=== PATIENT | male | born 1990 | race Caucasian/White ===

== ENCOUNTER 2016-08-11 21:38 | Emergency (ER) | payer SELFPAY ==
[2016-08-11 22:50] LABS: BASOPHIL % 0.9 % (0-2); PLATELET COUNT 270 x10^3mcL (130-400); RED CELL DISTRIBUTION WIDTH 13.4 % (11.5-14.5)
[2016-08-11 22:59] LABS: CARBON DIOXIDE 26.3 mmol/L (21-32); CHLORIDE SERUM 103 mmol/L (98-107); CREATININE SERUM 1.1 mg/dL (0.7-1.3); GFR1 > 60 mL/min; GLUCOSE SERUM 116 mg/dL (74-106); POTASSIUM SERUM 3.7 mmol/L (3.5-5.1); SODIUM SERUM 140 mmol/L (136-145)
[2016-08-11 23:03] LABS: ALBUMIN 3.8 g/dL (3.4-5.0); ALKALINE PHOSPHATASE 68 U/L (46-116); ALT/SGPT 32 U/L (16-63); AST/SGOT 16 U/L (15-37); BILIRUBIN TOTAL 0.2 mg/dL (0.20-1.00); LIPASE 142 IU/L (73-393); TOTAL PROTEIN, SERUM 7.1 g/dL (6.4-8.2)
[2016-08-11 23:41] VITALS: BP 140/91
== END 2016-08-11 23:41 | disposition home or self-care (01) ==
LOC: ED 21:38
PROVIDERS: Emergency Medicine
DX: R07.9 Chest pain, unspecified (principal)
CPT/HCPCS: J1885; Q0092

== ENCOUNTER 2016-12-04 17:32 | Emergency (ER) | payer MEDICAID ==
[2016-12-04 20:03] VITALS: BP 131/76
== END 2016-12-04 20:03 | disposition home or self-care (01) ==
LOC: ED 17:32
DX: L25.9 Unspecified contact dermatitis, unspecified cause (principal); T78.40XA Allergy, unspecified, initial encounter; X58.XXXA Exposure to other specified factors, initial encounter
CPT/HCPCS: J1100

== ENCOUNTER 2017-03-14 18:13 | Emergency (ER) | payer SELFPAY ==
[2017-03-14 22:07] VITALS: BP 122/74
== END 2017-03-14 22:07 | disposition home or self-care (01) ==
LOC: ED 18:13
DX: I88.9 Nonspecific lymphadenitis, unspecified (principal)

== ENCOUNTER 2017-11-02 23:25 | Emergency (ER) | payer SELFPAY ==
[~2017-11-02] VITALS: Ht 154.9 cm; Wt 95.7 kg
[2017-11-02 23:34] VITALS: BP 131/89; Ht 154.9 cm; Wt 95.7 kg
== END 2017-11-02 23:52 | disposition left against medical advice (07) ==
LOC: ED 23:25
DX: Z53.21 Procedure and treatment not carried out due to patient leaving prior to being seen by health care provider (principal)

== ENCOUNTER 2018-03-06 03:08 | Emergency (ER) | payer SELFPAY ==
[~2018-03-06] VITALS: Ht 177.8 cm; Wt 97.1 kg
[2018-03-06 03:13] VITALS: Ht 177.8 cm; Wt 97.1 kg
[2018-03-06 04:41] VITALS: BP 135/77
== END 2018-03-06 04:41 | disposition home or self-care (01) ==
LOC: ED 03:08
DX: S29.011A Strain of muscle and tendon of front wall of thorax, initial encounter (principal); M94.0 Chondrocostal junction syndrome [Tietze]; X58.XXXA Exposure to other specified factors, initial encounter; Y93.89 Activity, other specified; Y92.89 Other specified places as the place of occurrence of the external cause; Y99.8 Other external cause status
CPT/HCPCS: J1885

== ENCOUNTER 2020-01-06 21:30 | Emergency (ER) | payer SELFPAY ==
[~2020-01-06] VITALS: Ht 170.2 cm; Wt 95.3 kg
[2020-01-06 21:51] VITALS: Ht 170.2 cm; Wt 95.3 kg
[2020-01-07 00:25] VITALS: BP 125/80
== END 2020-01-07 00:25 | disposition home or self-care (01) ==
LOC: ED 21:30
DX: S20.212A Contusion of left front wall of thorax, initial encounter (principal); F17.210 Nicotine dependence, cigarettes, uncomplicated; W18.30XA Fall on same level, unspecified, initial encounter; Y93.89 Activity, other specified; Y92.89 Other specified places as the place of occurrence of the external cause; Y99.8 Other external cause status
CPT/HCPCS: 99406